=== PATIENT | male | born 1965 | race Caucasian/White ===

== ENCOUNTER 2019-12-30 15:10 | Outpatient (CLI) | payer BC, SELFPAY ==
--- NOTE | ~2019-12-30 | US_ITS ---
EXAMINATION: US carotid duplex BI EXAM DATE: 12/30/2019 15:55 INDICATION: Coronary artery disease. TECHNIQUE: Grayscale, color and pulsed Doppler images of the cervical carotid arteries were obtained . The degree of vessel stenosis is placed in one of the following categories: normal, <50% stenosis, 50-69% stenosis, >=70% stenosis but less than near-occlusion, near-occlusion, or occlusion. Note that percent stenosis relative to normal distal artery lumen diameter is indirectly measured from velocit y measurements as described by Jules, et al. Radiology 2003; 229:340-346. There is no prior study fo r comparison. FINDINGS: RIGHT SIDE: Right common carotid artery peak systolic velocity (PSV in cm/s): 69 Right bulb/internal carotid artery peak systolic velocity (PSV in cm/s): 51 Right internal carotid artery end diastolic velocity (EDV in cm/s): 14 Right ICA/CCA peak systolic ratio: 0.7 Right external carotid artery peak systolic velocity (PSV in cm/s): 93 Right vertebral artery antegrade flow: yes There is minimal carotid bulb plaque. Velocity and Doppler waveforms in the common and internal carotid arteries is normal. LEFT SIDE: Left common carotid artery peak systolic velocity (PSV in cm/s): 80 Left bulb/internal carotid artery peak systolic velocity (PSV in cm/s): 83 Left internal carotid artery end diastolic velocity (EDV in cm/s): 30 Left ICA/CCA peak systolic ratio: 1.0 Left external carotid artery peak systolic velocity (PSV in cm/s): 89 Left vertebral artery antegrade flow: yes There is minimal carotid bulb plaque. Velocity and Doppler waveforms in the common and internal carotid arteries is normal. IMPRESSION: 1. Less than 50 percent stenosis in the right internal carotid artery. 2. Less than 50 percent stenosis in the left internal carotid artery. > Reviewed, dictated and finalized at location A.
== END 2019-12-30 15:11 | disposition home or self-care (01) ==
LOC: ANHIMG 15:16
PROVIDERS: PCP Family Medicine; Visit Provider Specialist
DX: I25.118 Atherosclerotic heart disease of native coronary artery with other forms of angina pectoris (principal); I65.23 Occlusion and stenosis of bilateral carotid arteries
CPT/HCPCS: 93880

== ENCOUNTER 2023-03-15 11:21 | Outpatient (CLI) | payer BC, SELFPAY ==
--- NOTE | ~2023-03-15 | XR_ITS ---
XR abdomen/kub 1V 03/15/2023 11:41 INDICATION: Left upper quadrant pain TECHNIQUE: KUB COMPARISON: None FINDINGS: Bowel gas pattern is normal. There is no evidence of free air, mass, organomegaly, ascites or obstruction. No abnormal calculi are seen. The bones appear intact. Moderate lumbar spondylosis . There are pelvic phleboliths. IMPRESSION: 1: No acute abdominal abnormality identified. Reviewed, dictated and finalized at location L.
== END 2023-03-15 11:22 | disposition home or self-care (01) ==
PROVIDERS: PCP Family Medicine; Visit Provider Nurse Practitioner Family
DX: R10.32 Left lower quadrant pain (principal); R19.7 Diarrhea, unspecified
CPT/HCPCS: 74018

== ENCOUNTER 2023-05-01 00:45 | Day surgery (SDC) | payer BC, SELFPAY ==
[2023-04-23 14:30] VITALS: BMI 34.2
--- NOTE | 2023-04-27 13:49 | SUR.PREOP ---
Patient called regarding upcoming procedure. Reviewed preop instructions, appointment times, and procedure prep.
[2023-05-01 07:21] VITALS: BP 174/119; PULSE 66; RESP 16; TEMP 36.4; O2SAT 99; BMI 33.3
--- NOTE | 2023-05-01 07:24 | SUR.PREOP ---
Per pt, he thought he did have an allergy to HCTZ and didn't realize one of his medications contains HCTZ so he thinks maybe it was an allergy to a different medication.
--- NOTE | 2023-05-01 07:27 | PM.HPGS ---
History of Present Illness History of Present Illness Consent: Risks, benefits, and alternatives have been discussed and questions answered. Patient agrees to proceed with procedure. Chief complaint: GERD,Left Upper Quad Pain,Neoplasm screening Narrative: David Perry is a 58 year old male Presents for both colonoscopy and EGD. Patient has left upper quadrant discomfort. He states that this was associated with diarrhea recently. He has a longstanding history of acid reflux. Currently treated with lansoprazole 30mg p.o. daily. States his diarrhea has resolved. The abdominal pain is improving. Denies any specific heartburn present. Noticed a little bit of left upper quadrant cramping on being NPO for endoscopy testing. Patient has a history of gastric sleeve for weight loss. Patient has a history of colonoscopy in 2010 that was unremarkable for screening purposes. EGD 15 or 20 years ago was also unremarkable. Patient presents today for surveillance colonoscopy as well as follow-up EGD because of his left upper quadrant pain. Review of Systems Review of Systems: Review of systems noncontributory. [facility] Past Medical History Medical History CAD (coronary artery disease) COVID-19 Erectile dysfunction GERD with esophagitis History of rectal fissure Hypocalcemia Hypokalemia Hyponatremia LUQ pain Nerve compression syndrome Obesity (BMI 35.0-39.9 without comorbidity) Skin tag Wart Surgical History Surgical History H/O bariatric surgery 2014 H/O knee surgery 2006 History of mandibular surgery 1982 History of shoulder surgery 1981, 2013 Hx of heart artery stent 2005, 2008, 2019 Family History Family History Grandparent Diabetes mellitus Family history of malignant neoplasm Mother Diabetes mellitus Family history of cardiovascular disease Acute myocardial infarction Family history of coronary artery disease Father Family history of cardiovascular disease Acute myocardial infarction Family history of coronary artery disease Cerebrovascular accident, Onset Age: 80 Social History Social History Smoking status: Never smoker Alcohol intake: current Substance use: never Substance use type: does not use Lack of Transportation: No Lack of Food: Never True Current Housing: I Have Housing Concerned About Future Housing: No Difficulty Paying Gas/Electric Bills: No Currently Unemployed: No Education: Master's Degree or Higher Difficulty w/ Childcare or Family Care: No Living arrangements: with family Spiritual care concerns: No Meds Home Medications and Allergies Home Medications Medication Instructions Recorded Confirmed Type aspirin 81 mg chewable tablet 81 mg PO DAILY 04/02/19 05/01/23 History sildenafil 100 mg tablet (Viagra) 100 mg PO DAILY PRN sexual 04/09/20 05/01/23 Rx activity #10 tabs carvedilol 25 mg tablet (Coreg) 25 mg PO Q12H 04/13/21 05/01/23 History acetaminophen 500 mg capsule 500 mg PO Q6H PRN Pain 07/06/21 05/01/23 History nitroglycerin 0.4 mg sublingual See Rx Instructions .Route 04/20/22 05/01/23 Rx tablet .COMPLEX #25 tabs CPAP Equipment #1 ea 07/17/22 04/19/23 Rx CPAP through Insurance #1 ea 07/24/22 03/15/23 Rx zolpidem 10 mg tablet 10 mg PO QHS #90 tabs 10/23/22 05/01/23 Rx olmesartan 40 1 tablet PO DAILY #90 tabs 12/18/22 05/01/23 Rx mg-hydrochlorothiazide 25 mg tablet simvastatin 10 mg tablet 10 mg PO DAILY #90 tabs 12/18/22 05/01/23 Rx metformin 500 mg tablet See Rx Instructions .Route 02/13/23 05/01/23 Rx .COMPLEX #180 tabs clopidogrel 75 mg tablet 75 mg PO DAILY #90 tabs 04/10/23 05/01/23 Rx sertraline 25 mg tablet (Zoloft) 25 mg PO DAILY #90 tabs 04/19/23 05/01/23 Rx lansoprazole 30 mg capsule
[2023-05-01] MEDS: LACTATED RINGERS 1,000 ML 150 ML IV CONT (07:31)
[2023-05-01 07:54] LABS: Glucose Point of Care 118 mg/dl (65-105)
--- NOTE | 2023-05-01 08:21 | WPDANESEPPF ---
Anes - Initial Pre Proc Eval Procedure: Operation Date: 05/01/23 08:30 Proposed Procedures p Esophagogastroduodenoscopy & Screening Colonoscopy - Jakub Yap MD Date/Time: 05/01/23 08:21 Surgeon: Jakub Yap MD Pre Op Diagnosis: GERD,Left Upper Quad Pain,Neoplasm screening Patient Data Age: 58 Gender: M Height: 1.8 m Weight: 108.2 kg Last Vital Signs Temp 97.5 F L 05/01/23 07:21 Pulse 66 05/01/23 07:21 Resp 16 05/01/23 07:21 BP 174/119 H 05/01/23 07:21 Pulse Ox 99 05/01/23 07:21 O2 Del Method Room Air 05/01/23 07:21 Allergies Allergy/AdvReac Type Severity Reaction Status Date / Time amlodipine Allergy Intermediate Swelling Verified 05/01/23 07:17 Home Medications Medication Instructions Recorded Confirmed Type aspirin 81 mg chewable tablet 81 mg PO DAILY 04/02/19 05/01/23 History sildenafil 100 mg tablet (Viagra) 100 mg PO DAILY PRN sexual 04/09/20 05/01/23 Rx activity #10 tabs carvedilol 25 mg tablet (Coreg) 25 mg PO Q12H 04/13/21 05/01/23 History acetaminophen 500 mg capsule 500 mg PO Q6H PRN Pain 07/06/21 05/01/23 History nitroglycerin 0.4 mg sublingual See Rx Instructions .Route 04/20/22 05/01/23 Rx tablet .COMPLEX #25 tabs CPAP Equipment #1 ea 07/17/22 04/19/23 Rx CPAP through Insurance #1 ea 07/24/22 03/15/23 Rx zolpidem 10 mg tablet 10 mg PO QHS #90 tabs 10/23/22 05/01/23 Rx olmesartan 40 1 tablet PO DAILY #90 tabs 12/18/22 05/01/23 Rx mg-hydrochlorothiazide 25 mg tablet simvastatin 10 mg tablet 10 mg PO DAILY #90 tabs 12/18/22 05/01/23 Rx metformin 500 mg tablet See Rx Instructions .Route 02/13/23 05/01/23 Rx .COMPLEX #180 tabs clopidogrel 75 mg tablet 75 mg PO DAILY #90 tabs 04/10/23 05/01/23 Rx sertraline 25 mg tablet (Zoloft) 25 mg PO DAILY #90 tabs 04/19/23 05/01/23 Rx lansoprazole 30 mg capsule,delayed 30 mg PO DAILY 04/23/23 05/01/23 History release triamcinolone acetonide 0.1 % 1 applic topical QID PRN Rash 04/23/23 05/01/23 History topical cream Laboratory Tests 05/01/23 07:52 POC Capillary Glucose 118 H mg/dl (65-105) Patient hx anesthesia problems: none Family hx anesthesia problems: none Results Review: All pre-operative results and documents have been reviewed as part of the pre-operative evaluation. ON LICENSE OF [facility] Past Medical History Medical History CAD (coronary artery disease) COVID-19 Erectile dysfunction GERD with esophagitis History of rectal fissure Hypocalcemia Hypokalemia Hyponatremia LUQ pain Nerve compression syndrome Obesity (BMI 35.0-39.9 without comorbidity) Skin tag Wart Surgical History Surgical History H/O bariatric surgery 2014 H/O knee surgery 2006 History of mandibular surgery 1982 History of shoulder surgery 1981, 2014 Hx of heart artery stent 2005, 2008, 2019 Family History Family History Grandparent Diabetes mellitus Family history of malignant neoplasm Mother Diabetes mellitus Family history of cardiovascular disease Acute myocardial infarction Family history of coronary artery disease Father Family history of cardiovascular disease Acute myocardial infarction Family history of coronary artery disease Cerebrovascular accident, Onset Age: 80 Social History Social History Smoking status: Never smoker Alcohol intake: current Substance use: never Substance use type: does not use Lack of Transportation: No Lack of Food: Never True Current Housing: I Have Housing Concerned About Future Housing: No Difficulty Paying Gas/Electric Bills: No Currently Unemployed: No Education: Master's Degree or Higher Difficulty w/ Childcare or Family Care: No Living arrangements: with family Spiritual care concerns: No
--- NOTE | 2023-05-01 08:38 | SUR.OPER ---
EGD: START: 831; END: 832. COLONOSCOPY START: 838; END: 850.
--- NOTE | 2023-05-01 08:54 | SUR.OPER ---
DR DOLAN NOTIFIED SIGMOID COLON POLYP NOT RETRIEVED. Leighton RASHID, RN & Dangelo LOPEZ RN
[2023-05-01 08:58] VITALS: BP 135/85; PULSE 63; RESP 17; O2SAT 99
[2023-05-01 09:08] VITALS: BP 137/91; PULSE 61; RESP 18; O2SAT 98
[2023-05-01 09:18] VITALS: BP 136/93; PULSE 57; RESP 12; O2SAT 99
== END 2023-05-01 09:29 | disposition home or self-care (01) ==
PROVIDERS: PCP Family Medicine; Visit Provider Internal Medicine Gastroenterology
PROC: 0DJ08ZZ Inspection of Upper Intestinal Tract, Via Natural or Artificial Opening Endoscopic (ICD-10-PCS; CPT 43235; principal; 2023-05-01 08:30)
DX: Z12.11 Encounter for screening for malignant neoplasm of colon (principal); K63.5 Polyp of colon; K64.8 Other hemorrhoids; K21.9 Gastro-esophageal reflux disease without esophagitis; I25.10 Atherosclerotic heart disease of native coronary artery without angina pectoris; Z98.84 Bariatric surgery status; Z79.82 Long term (current) use of aspirin; Z79.84 Long term (current) use of oral hypoglycemic drugs; Z79.02 Long term (current) use of antithrombotics/antiplatelets
CPT/HCPCS: 45385; 43239; 82948; 87081; J2704; J7120

== ENCOUNTER 2023-05-22 07:48 | Outpatient (CLI) | payer BC, SELFPAY ==
--- NOTE | ~2023-05-22 | CT_ITS ---
CT of the Abdomen and Pelvis: Indication: Abdominal pain Technique: 2.5 mm axial scans were obtained through the abdomen and pelvis following intravenous adm inistration of 100 cc of Omnipaque 350. Dose reduction technique was used on this scan by utilizing a utomated exposure control and iterative reconstruction technique. The dose-length product (DLP) was 1 263.24 mGy-cm. Findings: Scans through the lung bases are unremarkable. The liver, spleen, pancreas, gallbladder, adrenals and kidneys are within normal limits. No evidence of aortic aneurysm. No lymphadenopathy. No bowel obstruction or bowel wall thickening. Evidence of prior bariatric surgery noted. There is no evidence to suggest acute appendicitis. Small fat-containing umbilical hernia noted. Images through the pelvis were performed. Urinary bladder unremarkable. Prostate gland and seminal ve sicles are unremarkable. No ascites. Impression: No acute abnormality evident. Small fat-containing umbilical hernia. Evidence of prior presumed bariatric surgery. Reviewed, dictated and finalized at [facility]. [facility] Impression: No acute abnormality evident. Small fat-containing umbilical hernia. Evidence of prior presumed bariatric surgery.
[2023-05-22 08:14] LABS: Estimated Glomerular Filt Rate > 60
== END 2023-05-22 07:49 | disposition home or self-care (01) ==
PROVIDERS: PCP Family Medicine; Visit Provider Nurse Practitioner Family
DX: K42.9 Umbilical hernia without obstruction or gangrene (principal)
CPT/HCPCS: 74177; Q9967

== ENCOUNTER 2025-01-03 11:01 | Emergency (ER) | payer BC, SELFPAY ==
[2025-01-03 11:20] VITALS: BP 137/82; PULSE 78; RESP 16; TEMP 37.2; O2SAT 99
[2025-01-03 11:38] LABS: EDCOVIDSCREEN Negative (Negative); EDINFLUASCREEN Negative (Negative); EDINFLUBSCREEN Negative (Negative)
--- NOTE | 2025-01-03 11:44 | ED_ITS ---
HPI - Nausea/Vomiting/Diarrhea General Chief complaint: Nausea/Vomiting/Diarrhea Stated complaint: DIARRHEA/STOMACH ISSUES/TIRED/FEVER Time Seen by Provider: 01/03/25 11:44 Source: patient Mode of arrival: ambulatory Limitations: no limitations History of Present Illness HPI Narrative: 59 yo M presents with multiple complaints. Reports sinus pressure, congestion, PND for 1 wk. Has nausea and diarrhea for 3 to 4 days. Took Imodium yesterday. Today has not had any diarrhea. No vomiting. Pt reports hx of gastritis but states sinuses have caused GI stuff in the past also. Also c/o sore throat, pain when swallowing, tongue thick, feels like something in throat with swallowing. Afebrile. All systems reviewed and negative except as noted above. Related Data Home Medications ?Medication ?Instructions ?Recorded ?Confirmed ?Last Taken ?Type aspirin 81 mg chewable tablet 81 mg PO DAILY 04/02/19 06/20/24 Unknown History carvedilol 25 mg tablet (Coreg) 25 mg PO Q12H 04/13/21 06/20/24 05/01/23 History acetaminophen 500 mg capsule 500 mg PO Q6H PRN Pain 07/06/21 06/20/24 Unknown History simvastatin 20 mg tablet mg PO 10/19/23 06/20/24 Unknown History Allergies Allergy/AdvReac Type Severity Reaction Status Date / Time amlodipine Allergy Intermediate Swelling Verified 01/03/25 11:21 [facility] Past Medical History Medical History CAD (coronary artery disease) LUQ pain COVID-19 Nerve compression syndrome Hyponatremia Hypocalcemia Hypokalemia Wart History of rectal fissure Skin tag Obesity (BMI 35.0-39.9 without comorbidity) Erectile dysfunction GERD with esophagitis Surgical History Surgical History History of mandibular surgery 1981 H/O bariatric surgery 2015 Hx of heart artery stent 2004, 2007, 2019 H/O knee surgery 2007 History of shoulder surgery 1981, 2013 Family History Family History Grandparent Diabetes mellitus Family history of malignant neoplasm Mother Diabetes mellitus Family history of cardiovascular disease Acute myocardial infarction Family history of coronary artery disease Father Family history of cardiovascular disease Acute myocardial infarction Family history of coronary artery disease Cerebrovascular accident, Onset Age: 80 Social History Social History Smoking status: Never smoker Alcohol intake: current Substance use: never Substance use type: does not use Lack of Transportation: No Lack of Food: Never True Current Housing: I Have Housing Concerned About Future Housing: No Difficulty Paying Gas/Electric Bills: No Currently Unemployed: No Education: Master's Degree or Higher Difficulty w/ Childcare or Family Care: No Living arrangements: with family Spiritual care concerns: No Comments At time of signature, agree with nursing past medical, surgical, social and family history. There is no relevant family history pertinent to the presenting complaint. Exam Narrative: GENERAL: This is a well-nourished, well-developed patient, in no apparent distress. HEAD: normocephalic, atraumatic. EYES: PERRL. Sclera clear/white. Vision is grossly intact. EARS: External ears normal, auditory canals clear and without drainage, TMs no rmal without perforation. Hearing grossly intact. NOSE: External nose normal with purulent nasal drainage, erythema and swelling to bilateral nares. Maxillary sinus tenderness on palpation. THROAT: Mucous membranes moist, erythema to throat, erythematous ulcers and noted to posterior pharynx, mild swelling. No exudates. NECK: Neck supple, non-tender without lymphadenopathy, masses or thyromegaly. CARDIOVASCULAR: Regular rate and rhythm without murmurs, gallops, or rubs. RESPIRATORY: Clear to auscultation. Breath sounds equal bilaterally. No wheezes, rales, or rhonchi. GASTROINTESTINAL: Abdomen soft, non-tender, nondistended. Bowel sounds are active. No hepato-splenomegaly, or palpable masses. No guarding. SKIN: warm, Dry, intact with no suspicious lesions or rash, good texture and tur gor. NEURO: awake, alert, and oriented to person, place and time. There were no obvious focal neurologic abnormalities. EXTREMITIES: No joint tenderness, effusion, or edema noted. Course Course Level of Care: Express Care Visit Vital Signs Vital signs: Vital Signs Temperature 37.2 C 01/03/25 11:20 Pulse Rate 78 01/03/25 11:20 Respiratory Rate 16 01/03/25 11:20 Blood Pressure 137/82 01/03/25 11:20 Pulse Oximetry 99 01/03/25 11:20 Temperature 37.2 C 01/03/25 11:20 Pulse Rate 78 01/03/25 11:20 Respiratory Rate 16 01/03/25 11:20 Blood Pressure 137/82 01/03/25 11:20 Pulse Oximetry 99 01/03/25 11:20 Reviewed MDM - Nausea/Vomiting/Diarrhea MDM Narrative Medical decision making narrative: No abdominal tenderness on exam. Patient has not had episode of diarrhea since taking Imodium yesterday. Recommend hydration with p.o. fluids. Will treat bacterial sinusitis with antibiotic due to symptoms and duration of symptoms. Will treat ulcers, sore throat with nystatin for thrush. Negative COVID, influenza and strep. Strep culture ordered. Recommend follow-up with primary care physician at next available appointment to further discuss GI symptoms. Lab Data Labs: Lab Results 01/03/25 01/03/25 Range/Units 11:34 12:08 POC Influenza A Ag Negative (Negative) POC Influenza B Ag Negative (Negative) POC SARS CoV-2 Ag Negative (Negative) POC Grp A Strep Screen Negative (Negative) Discharge Plan Discharge Clinical Impression: Diarrhea, Acute bacterial sinusitis, Candidiasis of mouth Patient Disposition: Home Condition: Stable Instructions: Antibiotic Form, Sinusitis (ED), Oral Candidiasis (ED), Gastroe nteritis (ED) Additional Instructions: Take antibiotic as prescribed to treat bacterial sinusitis. Continue taking [id number] Imodium as needed for diarrhea. Drink at least 64 oz water a day. Follow-up with your primary care physician for further evaluation of her symptoms. If you have severe pain, concern for dehydration go to the ER. Patient Language: Kuwaiti Prescriptions: New doxycycline hyclate 100 mg capsule 100 mg PO BID 7 Days Qty: 14 0RF nystatin 100,000 unit/mL suspension 6 ml PO QID 10 Days Qty: 240 0RF Rx Instructions: swish and swallow No Action acetaminophen 500 mg capsule 500 mg PO Q6H PRN (Reason: Pain) Rx Instructions: TAKE 2 CAP PO Q6 HRS PRN simvastatin 20 mg tablet PO amoxicillin 500 mg capsule 2,000 mg PO ONCE PRN (Reason: prophalaxis) Qty: 4 1RF aspirin 81 mg Tablet,Chewable 81 mg PO DAILY carvedilol [Coreg] 25 mg tablet 25 mg PO Q12H Rx Instructions: must administer with a meal/food (DME) CPAP Equipment See Rx Instructions .Route .MEDSUPPLY Qty: 1 0RF Rx Instructions: Rx: Travel AutoPAP 5-15 cm H2O with no EPR Dx: G47.33 Please link me to patient's CPAP machine through [facility] Physician: Dr. Sybil Day DO Please fax order to: [phone] and direct fax to [phone] (DME) CPAP through Insurance See Rx Instructions .Route .MEDSUPPLY Qty: 1 0RF Rx Instructions: Rx: AutoPAP 5-15 cm H2O with no EPR, CPAP mask/filters/tubing and humidifier chamber; Patient's current machine is over 5 years old and I can no longer access data wirelessly Dx: G47.33 Please link me to patient's CPAP machine through [facility] Physician: Dr. Sybil Day, DME: [facility] zolpidem 10 mg tablet 10 mg PO QHS Qty: 90 3RF nitroglycerin 0.4 mg tablet, sublingual See Rx Instructions .ROUTE .COMPLEX Qty: 25 12RF Dose Instruction: DISSOLVE 1 TABLET UNDER THE TONGUE EVERY 5 TO 15 MINUTES NEEDED FOR CHEST PAIN Rx Instructions: DISSOLVE 1 TABLET UNDER THE TONGUE EVERY 5 TO 15 MINUTES NEEDED FOR CHEST PAIN clopidogrel 75 mg tablet 75 mg PO DAILY Qty: 90 3RF metformin 500 mg tablet See Rx Instructions .ROUTE .COMPLEX Qty: 180 1RF Dose Instruction: TAKE 1 TABLET TWICE A DAY Rx Instructions: TAKE 1 TABLET TWICE A DAY lansoprazole 30 mg capsule,delayed release(DR/EC) See Rx Instructions .ROUTE .COMPLEX Qty: 90 1RF Dose Instruction: TAKE 1 CAPSULE DAILY Rx Instructions: TAKE 1 CAPSULE DAILY sildenafil [Viagra] 100 mg tablet 100 mg PO DAILY PRN (Reason: sexual activity) Qty: 30 5RF Rx Instructions: administer 30 minutes to 4 hours before activity Wegovy 1.7 mg/0.75 mL pen injector 1.7 mg subcut WEEKLY Qty: 9 1RF olmesartan-hydrochlorothiazide 40-25 mg tablet 1 tablet PO DAILY Qty: 90 1RF Follow-up/Referrals: Sami Anderson MD [Primary Care Provider] - Time of Disposition: 12:25
[2025-01-03 12:10] LABS: EDSTREPNEGPOS1 Negative (Negative)
== END 2025-01-03 12:36 | disposition home or self-care (01) ==
PROVIDERS: Emergency Provider Nurse Practitioner Family; PCP Family Medicine
DX: R19.7 Diarrhea, unspecified (principal); J01.90 Acute sinusitis, unspecified; B37.0 Candidal stomatitis; Z20.822 Contact with and (suspected) exposure to COVID-19; I25.10 Atherosclerotic heart disease of native coronary artery without angina pectoris; K21.00 Gastro-esophageal reflux disease with esophagitis, without bleeding; E66.9 Obesity, unspecified; Z86.16 Personal history of COVID-19; Z95.5 Presence of coronary angioplasty implant and graft; Z79.82 Long term (current) use of aspirin; Z68.31 Body mass index [BMI] 31.0-31.9, adult
CPT/HCPCS: 87081; 87426; 87804; 87880; 99213; G0463